=== PATIENT | female | born 1935 | race Caucasian/White ===

== ENCOUNTER 2018-09-15 10:44 | Emergency (ER) | payer MEDICARE ==
[~2018-09-15] VITALS: Ht 160 cm; Wt 47.0 kg
[~2018-09-15 10:44] MED LIST: ALBU8.5H5 INH; AMIL5TAB2 PO; ASCO100019 PO; CALC0.25 PO; CHOL500050 PO; FLUT16SP NS; FLUT1DIS IH; GLUC10002 PO; LEVO175T2 PO; LORA10TA75 PO; MELO7.5T31 PO; METF500T17 PO; MONT10TA6 PO; OMEG500C3 PO; OXYC-302 PO; PRAS50CA PO; SCOP1PAT11 TD; SIMV10TA3 PO; SITA100T PO; VALS160T3 PO; [UNRECOGNIZED DRUG - CODE] PO; [UNRECOGNIZED DRUG - CODE] PO
[2018-09-15] MEDS ORDERED: LIDOCAINE 1%, 10ML INFIL ONE (11:30)
[2018-09-15] MEDS ORDERED: DIPH,PERTUSS(ACELL),TET VAC/PF 0.5 ML IM-VACC ONE ×2 (11:30→13:04)
[2018-09-15] MEDS ORDERED: LIDOCAINE-MPF 1%, 5ML ONE ×2 (11:35→11:37)
[2018-09-15] MEDS ORDERED: METO25TA2 PO (12:20)
[2018-09-15] MEDS ORDERED: AMIL5TAB2 PO (12:20)
[2018-09-15] MEDS ORDERED: FURO20TA3 PO (12:20)
[2018-09-15] MEDS ORDERED: LIPA1CAP45 PEG (12:20)
[2018-09-15] MEDS ORDERED: SYNTHROID PO (12:20)
[2018-09-15] MEDS ORDERED: PIOG15TA4 PO (12:20)
[2018-09-15] MEDS ORDERED: ALBU90AE INH (12:20)
[2018-09-15] MEDS ORDERED: MELO7.5T31 PO (12:20)
[2018-09-15 13:13] VITALS: BP 109/55
== END 2018-09-15 14:04 | disposition home or self-care (01) ==
LOC: ED 13:50
DX: S01.81XA Laceration without foreign body of other part of head, initial encounter (principal); S40.011A Contusion of right shoulder, initial encounter; W01.0XXA Fall on same level from slipping, tripping and stumbling without subsequent striking against object, initial encounter; Y93.01 Activity, walking, marching and hiking; Y92.410 Unspecified street and highway as the place of occurrence of the external cause; Y99.8 Other external cause status; E03.9 Hypothyroidism, unspecified
CPT/HCPCS: 13132; 70450; 73030; 90471; 90715; 99285; J3490; 13152